=== PATIENT | male | born 1950 | race Caucasian/White ===

== ENCOUNTER 2018-11-03 10:56 | Emergency (ER) | payer MEDICARE ==
[2018-11-03 11:20] VITALS: O2SAT 96
--- NOTE | 2018-11-03 12:05 | RAD ---
EXAM DESCRIPTION: Femur,Right (accession [id number]), Hip,Right 2 Views (accession [id number]) CLINICAL HISTORY: 68 years Male, fell COMPARISON: None. TECHNIQUE: 4 views of the right hip. 3 views of the mid and distal right femur. IMPRESSION: Partially visualized total left hip arthroplasty. Total right hip arthroplasty is present without evidence of hardware complication such as fracture or perivertebral hardware loosening. Surgical hardware appears in satisfactory alignment. No acute displaced fracture. No dislocation. There is no soft tissue swelling or joint effusion. There is mild arthrosis of the pubic joint. There is no acute fracture or aggressive appearing osseous lesion of the right femur. Electronically signed by: Vish Palacios MD 11/03/2018 12:04 PM [facility]
--- NOTE | 2018-11-03 12:05 | RAD ---
EXAM DESCRIPTION: Femur,Right (accession [id number]), Hip,Right 2 Views (accession [id number]) CLINICAL HISTORY: 68 years Male, fell COMPARISON: None. TECHNIQUE: 4 views of the right hip. 3 views of the mid and distal right femur. IMPRESSION: Partially visualized total left hip arthroplasty. Total right hip arthroplasty is present without evidence of hardware complication such as fracture or perivertebral hardware loosening. Surgical hardware appears in satisfactory alignment. No acute displaced fracture. No dislocation. There is no soft tissue swelling or joint effusion. There is mild arthrosis of the pubic joint. There is no acute fracture or aggressive appearing osseous lesion of the right femur. Electronically signed by: Vish Palacios MD 11/03/2018 12:04 PM [facility]
--- NOTE | 2018-11-03 12:15 | ED.PDOC ---
History of Present Illness - General Chief Complaint: Trauma Stated Complaint: RIGHT SIDE PAIN ALL THE WAY DOWN Time Seen by Provider: 11/03/18 11:03 Source: patient Exam Limitations: no limitations - History of Present Illness Initial Comments: the patient is a 68-year-old male presenting to the emergency room after having had a dresser fall over on him at the longterm earlier today. He has some right hip pain that is mainly concerned about is he has had a repair there before. He normally gets around in wheelchair and he is still able to transfer while bearing weight on the right hip. He has numerous other sore places but none that are bothering him as much as this. This occurred this morning. Timing/Duration: momentarily Severity: moderate Improving Factors: immobilization Worsening Factors: movement Associated Symptoms: denies symptoms Review of Systems - Review of Systems Review of Systems: 11/03/18 12:14 numerous correction complaints but review of system is for new complaints Constitutional: States: no symptoms reported EENTM: States: no symptoms reported Respiratory: States: no symptoms reported Cardiology: States: no symptoms reported Gastrointestinal/Abdominal: States: no symptoms reported Genitourinary: States: no symptoms reported Musculoskeletal: States: see HPI Skin: States: no symptoms reported Neurological: States: no symptoms reported Endocrine: States: no symptoms reported All other Systems: No Change from Baseline Past Medical History (General) - Patient Medical History Hx Hypertension: Yes Hx Cancer: No Hx Hepatitis C: No - Vaccination History Hx Tetanus, Diphtheria Vaccination: Yes Hx Influenza Vaccination: Yes Hx Pneumococcal Vaccination: Yes Immunizations Up to Date: Yes - Social History Hx Tobacco Use: No Hx Alcohol Use: No Hx Substance Use: No Hx Substance Use Treatment: No Hx Depression: No - Activities of Daily Living [facility]dc/Assisted Living (if applicable):: [facility] Family Medical History - Family History Mother Family History: Unknown Physical Exam - Physical Exam General Appearance: Alert, Comfortable, No apparent distress Eye Exam: bilateral normal Ears, Nose, Throat: hearing grossly normal, normal pharynx Neck: full range of motion, supple Respiratory: lungs clear, normal breath sounds, no respiratory distress, no accessory muscle use Cardiovascular/Chest: normal peripheral pulses, no edema, other - regular rate Peripheral Pulses: radial,right: 2+, radial,left: 2+ Gastrointestinal/Abdominal: non tender, soft Rectal Exam: other - pelvis is stable Back Exam: no CVA tenderness, no vertebral tenderness Extremity: normal range of motion - he does have some discomfort to palpation over the right hip but no gross deformity. Previous operative site is noted., no calf tenderness, normal capillary refill, other - active and passive range of motion appear to be preserved in the right hip when compared to baseline. 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 X- ray of the pelvis and right hip shows no evidence of any fracture or dislocation. The patient will be sore for the next few weeks but can use his hydrocodone as needed. Needs to ambulate carefully to prevent any further falls. Keep routine follow-up with primary care doctor. ER warnings were given. Departure - Departure Clinical Impression: Fall at longterm Qualifiers: Encounter type: initial encounter Qualified Code(s): W19.XXXA - Unspecified fall, initial encounter; Y92.129 - Unspecified place in longterm as the place of occurrence of the external cause Strain of left hip Qualifiers: Encounter type: initial encounter Qualified Code(s): S76.012A - Strain of muscle, fascia and tendon of left hip, initial encounter Disposition: Discharge to SNF Condition: Fair Departure Forms: ED Discharge - Pt. Copy, Patient Portal Self Enrollment Diet: diabetic diet Activity: increase activity as tolerated Additional Instructions: the patient 68-year-old male presenting to emergency room secondary to right hip pain after having fallen backwards with a dresser on top of him. X- ray of the pelvis and right hip shows no evidence of any fracture or dislocation. The patient will be sore for the next few weeks but can use his hydrocodone as needed. Needs to ambulate carefully to prevent any further falls. Keep routine follow-up with primary care doctor. ER warnings were given.
[2018-11-03 13:18] VITALS: BP 143/86; TEMP 97.5
== END 2018-11-03 13:16 ==
LOC: ER 10:56
DX: S76.012A Strain of muscle, fascia and tendon of left hip, initial encounter (principal); I10 Essential (primary) hypertension; Z96.641 Presence of right artificial hip joint; W20.8XXA Other cause of strike by thrown, projected or falling object, initial encounter; Y92.129 Unspecified place in nursing home as the place of occurrence of the external cause

== ENCOUNTER 2019-04-14 13:37 | Emergency (ER) | payer MEDICARE ==
[2019-04-14] MEDS ORDERED: traMADol HCL 50 MG TAB PO ONE (14:42)
--- NOTE | 2019-04-14 14:47 | ED.PDOC ---
History of Present Illness - General Chief Complaint: Trauma Stated Complaint: s/p fall,right shoulder pain Time Seen by Provider: 04/14/19 14:01 Source: patient, [facility] Exam Limitations: clinical condition - History of Present Illness Initial Comments: PT PRESENTS TO THE ED AFTER FALLING FROM SEATED POSITION WHILE AT INTER[facility]ATE WHERE HE RESIDES. PT REPORTS HITTING HEAD ON A TILE SURFACE BUT DENIES HEADACHE. PTS MAIN COMPLAINT IS RIGHT SHOULDER PAIN, BUT HE ALSO COMPLAINS OF NECK PAIN, MID THORACIC BACK PAIN, AND PAIN IN THE RIGHT CHEST WALL. PT DENIES LOC. PT HAS A HISTORY OF PARKINSONS DISEASE THEREFORE HPI AND ROS IS LIMITED DUE TO PTS CHRONIC CONDITION. Occurred: just prior to arrival Severity: moderate Pain Location: neck, chest, back, upper extremity Method of Injury: fall Improving Factors: immobilization Worsening Factors: movement Loss of Consciousness: no loss of consciousness Associated Symptoms (Fall): chest pain, neck pain Allergies/Adverse Reactions: Allergies Amoxicillin Allergy (Verified 04/14/19 14:18) Codeine Allergy (Verified 04/14/19 14:18) Review of Systems - Review of Systems Constitutional: States: see HPI EENTM: States: see HPI. Denies: throat swelling Respiratory: States: see HPI Cardiology: States: see HPI Gastrointestinal/Abdominal: States: see HPI Genitourinary: States: see HPI Musculoskeletal: States: see HPI Skin: States: see HPI Neurological: States: see HPI Endocrine: States: see HPI Past Medical History (General) - Patient Medical History Hx Cardiac Disorders: Yes - Angina Hx Hypertension: Yes Hx Gastroesophageal Reflux: Yes Hx Cancer: No Hx Hepatitis C: No Hx Other - free text: PARKINSONS - Vaccination History Hx Tetanus, Diphtheria Vaccination: Yes Hx Influenza Vaccination: - UNKNOWN Hx Pneumococcal Vaccination: - UNKNOWN - Social History Hx Tobacco Use: No Hx Alcohol Use: No Hx Substance Use: No Hx Substance Use Treatment: No Hx Depression: No - Activities of Daily Living Long-Term/Assisted Living (if applicable):: [facility] Family Medical History - Family History Mother Family History: Unknown Physical Exam - Physical Exam General Appearance: Lethargic, Well Groomed, Well Hydrated, Well Nourished Head Injury: no evidence of injury Eye Exam: bilateral normal ENT Exam: hearing grossly normal, no evidence of ENT injury Neck Exam: full range of motion, normal alignment, normal inspection, tender midline Cardiovascular/Respiratory: no M/R/G, normal breath sounds, no respiratory distress, other - RIGHT LATERAL CHEST WALL TENDERNESS Gastrointestinal/Abdominal: non tender, soft Back Exam: vertebral tenderness - THORACIC Extremity Exam: no evidence of injury, normal range of motion, tenderness - TO RIGHT SHOULDER Neurologic: depressed affect Skin Exam: normal color, warm/dry - [place] Coma Score Best Eye Response (Narendra): (4) open spontaneously Best Verbal Response ([place]): (5) oriented Best Motor Response ([place]): (6) obeys commands Progress - Progress Progress: 04/14/19 16:17 PT RESTING COMFORTABLY, REPORTS IMPROVEMENT IN PAIN AFTER TRAMADOL. CT FINDINGS DISCUSSED. WILL D/C BACK TO [facility]. Departure - Departure Clinical Impression: Strain of neck muscle, Contusion of rib, Contusion of right shoulder, Contusion of right hip, Fall at [facility] Time of Disposition: 16:18 Disposition: Discharge to Home or Self Care Condition: Good Departure Forms: ED Discharge - Pt. Copy, Patient Portal Self Enrollment Instructions: DI for Trauma Referrals: UNKNOWN,PHYSICIAN [Primary Care Provider] - 1-5 Days
--- NOTE | 2019-04-14 15:49 | CT ---
EXAM DESCRIPTION: Head CT without contrast CLINICAL HISTORY: HEAD INJURY, FALL COMPARISON: Previous CT had June 16, 2018 TECHNIQUE: Noncontrast head CT was performed with routine protocol. FINDINGS: Normal méndez-white matter differentiation. Ventricles and sulci are prominent consistent with age advanced cerebral volume loss. Low density white matter consistent with chronic microvascular ischemic change. No high density hemorrhage, focal edema or shift of the midline. No sulcal effacement. Normal orbital contents. Basilar cisterns appear clear. Intact calvarium with no fracture or lytic lesion. Normal aeration of tympanic cavities and mastoid air cells. No fluid levels in the paranasal sinuses. Skull base appears intact. Symmetrical internal auditory canals. Coronal and sagittal reformatted images confirm the findings. No change compared to the previous study June 16, 2018. IMPRESSION: No acute intracranial pathologic process. This exam was performed according to our departmental dose-optimization program, which includes automated exposure control, adjustment of the mA and/or kV according to patient size and/or use of iterative reconstruction technique. Total DLP equals 864.76 mGycm. Electronically signed by: Deep Cheek MD 04/14/2019 3:46 PM CDT
--- NOTE | 2019-04-14 15:52 | CT ---
EXAM DESCRIPTION: Cervical Spine CLINICAL HISTORY: NECK PAIN, FALL COMPARISON: Previous CT cervical spine January 30, 2016 TECHNIQUE: Cervical CT is performed with thin-section axial imaging. MPRs are created and reviewed as well. FINDINGS: Axial bone window images reveal intact ring of C1. No abnormal widening of the atlantodens interval. No fracture of the vertebral bodies or transverse processes or posterior elements. Lung apices appear clear. No cervical mass or adenopathy. Sagittal reformatted images show normal alignment of vertebral bodies and facets. No jumped facet or facet fracture. Normal craniocervical alignment. No prevertebral soft tissue swelling. No a avulsion of the spinous processes. Spondylosis: Mild facet degenerative changes with mild disc/osteophyte complexes. No acute appearing disc herniation or significant spinal stenosis. Coronal reformatted images show normal atlantooccipital and atlantoaxial alignment. The base of the dens is intact as is the body of C2. Intact lateral masses. IMPRESSION: Negative for fracture or posttraumatic subluxation. This exam was performed according to our departmental dose-optimization program, which includes automated exposure control, adjustment of the mA and/or kV according to patient size and/or use of iterative reconstruction technique. Total DLP equals 430.29 mGycm. Electronically signed by: Deep Cheek MD 04/14/2019 3:50 PM CDT
--- NOTE | 2019-04-14 16:01 | CT ---
EXAM DESCRIPTION: Chest w/o Contrast (accession [id number]), Abdoment/Pelvis w/o Contrast (accession [id number]) CLINICAL HISTORY: 69 years Male, FALL COMPARISON: None. TECHNIQUE: CT images through the chest, abdomen, and pelvis without IV contrast. Multiplanar reformations were provided. This exam was performed according to our departmental dose-optimization program, which includes automated exposure control, adjustment of the mA and/or kV according to patient size and/or use of iterative reconstruction technique. CT CHEST FINDINGS: Heart and mediastinum: Heart is normal size. Esophagus is unremarkable. No mediastinal lymphadenopathy. Evaluation for hilar lymphadenopathy limited without contrast. No sniffing atherosclerosis. Thyroid Gland: Normal appearance of the thyroid gland. Lungs: Clear. Airways: No filling defects or bronchiectasis. Pleura: No effusion or pneumothorax. Musculoskeletal and Soft Tissues: Degenerative changes with no acute fracture or aggressive appearing osseous lesion. Soft tissues are unremarkable with no axillary lymphadenopathy. CT ABDOMEN FINDINGS: There is limited evaluation of the solid organs secondary to the lack of intravenous contrast. Liver: Normal. Gallbladder and biliary: Normal. Pancreas: Normal. Spleen: Normal. Kidneys and adrenal glands: Cortical left renal cyst measures 1.8 cm. No hydronephroureter. Adrenal glands are normal. GI tract: The stomach and small bowel are normal. Peritoneal cavity: No ascites or free air. Retroperitoneum and lymph nodes: Normal. Vascular: Mild atherosclerosis. Musculoskeletal and soft tissues: No acute fracture or aggressive appearing osseous lesion. Bilateral hip arthroplasty which obscures the lower pelvis due to streak hardware artifact. Soft tissues are unremarkable. CT PELVIS FINDINGS: GI tract: Moderate colonic stool throughout the colon. Appendix is normal. Urinary bladder: Moderately distended. Prostate: Obscured by streak hardware artifact from bilateral hip arthroplasty. IMPRESSION: 1. No acute abnormality of the chest, abdomen or pelvis on this noncontrast CT. 2. Moderate plaque stool. 3. Cortical left renal cyst. Electronically signed by: Vish Palacios MD 04/14/2019 3:59 PM CDT
--- NOTE | 2019-04-14 16:07 | CT ---
EXAM DESCRIPTION: Upper Extremity CLINICAL HISTORY: 69 years Male, FALL-RT SHOULDER PAIN COMPARISON: None. TECHNIQUE: Multiple axial images of the right shoulder without contrast. Multiplanar reformations were provided. This exam was performed according to our departmental dose-optimization program, which includes automated exposure control, adjustment of the mA and/or kV according to patient size and/or use of iterative reconstruction technique. FINDINGS: Bones and joint spaces: No acute displaced fracture. No glenohumeral dislocation. Moderate arthrosis of the acromioclavicular joint with 4 mm undersurface spurring. Mild arthrosis of the glenohumeral joint with small inferiorly projecting osteophyte extending off the medial inferior aspect of the humeral head. Subchondral cystic change noted over the greater tuberosity which can be from rotator cuff injury. No significant joint effusion. Muscles and tendons: Muscles and tendons appear intact. Soft tissues: Soft tissues of the right shoulder are unremarkable. IMPRESSION: 1. No acute CT abnormality of the right shoulder. 2. Moderate arthrosis of the acromioclavicular joint with mild undersurface spurring. 3. Mild glenohumeral arthrosis. 4. Subchondral cystic change of the greater tuberosity can be seen with rotator cuff injury. MRI of the right shoulder may be obtained to further characterize and evaluate the rotator cuff as indicated, in addition to the labrum, tendinous, ligamentous. Electronically signed by: Vish Palacios MD 04/14/2019 4:04 PM CDT
[2019-04-14 16:53] VITALS: BP 122/89; TEMP 96.8; O2SAT 96
== END 2019-04-14 16:50 | disposition home or self-care (01) ==
LOC: ER 13:37
DX: S40.011A Contusion of right shoulder, initial encounter (principal); S70.01XA Contusion of right hip, initial encounter; S16.1XXA Strain of muscle, fascia and tendon at neck level, initial encounter; S20.211A Contusion of right front wall of thorax, initial encounter; M54.6 Pain in thoracic spine; I10 Essential (primary) hypertension; K21.9 Gastro-esophageal reflux disease without esophagitis; G20 Parkinson's disease; Z88.1 Allergy status to other antibiotic agents; Z88.5 Allergy status to narcotic agent; W18.30XA Fall on same level, unspecified, initial encounter; Y92.129 Unspecified place in nursing home as the place of occurrence of the external cause

== ENCOUNTER 2020-02-16 07:09 | Emergency (ER) | payer MEDICARE, OTHER ==
[2020-02-16] MEDS ORDERED: TETANUS,DIPHTHERIA,PERTUSSIS 1 EA SYG IM ONE (07:29)
[2020-02-16] MEDS ORDERED: LIDOCAINE 1% 10 ML VIAL INJ ONE (07:59)
[2020-02-16] MEDS ORDERED: CHLORHEXIDINE GLUCONATE 4 % 15 ML UD TOP ONE (07:59)
--- NOTE | 2020-02-16 07:59 | ED.PDOC ---
History of Present Illness - General Chief Complaint: Trauma Stated Complaint: fall Time Seen by Provider: 02/16/20 07:27 Source: patient, RN notes reviewed, Vital Signs reviewed, half-way records Exam Limitations: no limitations - History of Present Illness Initial Comments: Patient is a 70-year-old white male who is in a half-way and fell from bed this morning striking his head on a trash can. There was no loss of consciousness. Patient complains of right ear pain, mild headache and neck pain. The pain is throbbing in nature. Worsened with palpation or movement. Better with rest. It is nonradiating. It is moderate in intensity. Patient's tetanus shot is not up-to-date. Occurred: just prior to arrival, this morning Severity: moderate Pain Location: head, neck, lower extremity Method of Injury: fall Improving Factors: immobilization Worsening Factors: movement Loss of Consciousness: no loss of consciousness Associated Symptoms (Fall): headache, neck pain Allergies/Adverse Reactions: Allergies Amoxicillin Allergy (Verified 04/14/19 14:18) Codeine Allergy (Verified 04/14/19 14:18) Home Medications: Ambulatory Orders Albuterol Sulfate Nebs [Proventil Nebs] 2.5 mg NEB Q6HR PRN 12/09/19 Albuterol Sulfate [Ventolin Hfa] 108 mcg INH Q6HR PRN 12/09/19 Ascorbic Acid [Vitamin C] 1,000 mg PO DAILY 12/09/19 Atorvastatin Calcium [Lipitor] 10 mg PO BEDTIME 12/09/19 Carbidopa-Levodopa [Carbidopa/Levodopa 25-100 mg] 2 tab PO 5XD 12/09/19 Cyanocobalamin [Vitamin B12] 1,000 mcg PO DAILY 12/09/19 Escitalopram Oxalate 15 mg PO BEDTIME 12/09/19 Fluticasone Propionate (Nasal) [Fluticasone Propionate] 50 mcg YAN BID 12/09/19 Gabapentin 600 mg PO TID 12/09/19 Guaifenesin 400 mg PO BID 12/09/19 Hydroxyzine HCl 25 mg PO TID 12/09/19 Levothyroxine Sodium [Synthroid] 100 mcg PO 0600 12/09/19 Lisinopril 20 mg PO DAILY 12/09/19 Meloxicam 15 mg PO DAILY 12/09/19 Menthol (Topical Analgesic) [Arctic Relief Roll-On Brandt] 1 dose TOP BID 12/09/19 Multiple Vitamin 1 tab PO DAILY 12/09/19 Polyethylene Glycol 3350 1 pow PO DAILY 12/09/19 Tramadol HCl 50 mg PO Q6H PRN 12/09/19 Trazodone HCl [Trazodone Hydrochloride] 25 mg PO BEDTIME 12/09/19 Acetaminophen [Tylenol] 650 mg PO PRN 02/16/20 Albuterol Inhaler [Ventolin Hfa Inhaler] 2 inh IN PRN 02/16/20 Ciclopirox 1 % EX PRN 02/16/20 Ibuprofen [Ibu] 800 mg PO PRN 02/16/20 Lidocaine 5% Patch [Lidoderm Patch] 1 ea TOP DAILY 02/16/20 Magnesium Hydroxide [Milk Of Magnesia] 30 ml PO PRN 02/16/20 Polyvinyl Alcohol [Artificial Tears] 1 drop BOTH_EYES PRN 02/16/20 Triamcinolone 0.1% Oint [Kenalog 0.1% Ointment] 1 applic TOP PRN 02/16/20 Review of Systems - Review of Systems Constitutional: States: no symptoms reported, see HPI. Denies: chills, fever, weakness EENTM: States: no symptoms reported. Denies: blurred vision, double vision, nose congestion Respiratory: States: no symptoms reported. Denies: cough, short of breath, wheezing Cardiology: States: no symptoms reported. Denies: chest pain, palpitations, syncope Gastrointestinal/Abdominal: States: no symptoms reported. Denies: abdominal pain, diarrhea, nausea, vomiting Genitourinary: States: no symptoms reported Musculoskeletal: States: see HPI, joint pain - Right ankle and foot, neck pain Skin: States: see HPI, other - Laceration right ear Neurological: States: no symptoms reported Endocrine: States: no symptoms reported Hematologic/Lymphatic: States: no symptoms reported All other Systems: No Change from Baseline Past Medical History (General) - Patient Medical History Hx Seizures: No Hx Stroke: No Hx Asthma: No Hx of COPD: No Hx Cardiac Disorders: Yes - Angina Hx Congestive Heart Failure: No Hx Pacemaker: No Hx Hypertension: Yes Hx Thyroid Disease: Yes Hx Diabetes: Yes Hx Gastroesophageal Reflux: Yes Hx Cancer: No Hx Hepatitis C: No Hx MRSA: No - Vaccination History Hx Tetanus, Diphtheria Vaccination: - unknown Hx Influenza Vaccination: Yes Hx Pneumococcal Vaccination: - unknown - Social History Hx Tobacco Use: Yes Hx Alcohol Use: Yes Hx Substance Use: No Hx Substance Use Treatment: No Hx Depression: Yes Hx Physical Abuse: No Hx Emotional Abuse: No - Activities of Daily Living Senior Care/Assisted Living (if applicable):: [facility] Family Medical History - Family History Mother Family History: Unknown Living Status: Father Living Status: Physical Exam - Physical Exam General Appearance: Alert, Anxious, Obese, Well Developed, Well Hydrated, Well Nourished Head Injury: other - Laceration right ear. Eye Exam: bilateral normal ENT Exam: hearing grossly normal, no evidence of ENT injury, no dental injury Neck Exam: full range of motion, normal alignment, tender lateral Cardiovascular/Respiratory: regular rate, rhythm, no M/R/G, normal peripheral pulses, no JVD, normal breath sounds, no respiratory distress Gastrointestinal/Abdominal: normal bowel sounds, non tender, soft, no organomegaly Back Exam: normal inspection, no CVA tenderness, no vertebral tenderness Extremity Exam: pelvis stable, joint effusion - Right ankle, tenderness - Right ankle and foot Neurologic: landing scaler II-XII nml as tested, no motor/sensory deficits, alert, normal mood/affect, oriented x 3 Skin Exam: normal color, warm/dry Progress - Progress Progress: Differential diagnosis: Ankle fracture, skull fracture, ear laceration, neck fracture among others. 02/16/20 10:34 CT scans and x-rays are unremarkable. No acute fractures. Patient received tetanus prophylaxis. Your laceration was repaired. Patient started on antibiotics. Plan on discharge home to the half-way at this time. I discussed this plan of care with the patient he voices understanding and agreement. Boby Chao M.D. #[id number] - Results/Orders Results/Orders: Study: 6 Views of the Right Foot and Right Ankle. Indication: fall from bed with pain Comparison: None. Impression: The posterior third of the calcaneus appears slightly shortened with patchy sclerosis at this site. This is concerning for age-indeterminate coronally oriented impaction fracture. Further characterization with CT of the ankle and CT of the foot recommended. Ankle mortise alignment normal. Mild spurring infer ior margin medial meniscus and lateral malleolus. Calcaneal spurring at the Achilles tendon insertion and plantar fascia origin. No acute fracture of the forefoot or midfoot identified. Mild soft tissue swelling of the ankle and hindfoot. Electronically signed by: Greg Murrell MD 02/16/2020 8:06 AM CDT Study: CT of the Head. Indication: fall from bed with c/o pain Technique: Axial CT images of the head were acquired without intravenous contrast. This exam was performed according to our departmental dose-optimization program, which includes automated exposure control, adjustment of the mA and/or kV according to patient size and/or use of iterative reconstruction technique. Comparison: None. Findings: No acute ischemia, acute hemorrhage, mass, mass effect, midline shift, or extra-axial fluid collection identified by CT. Ventricles are normal in configuration without hydrocephalus. Patchy hypoattenuation of the periventricular and subcortical white matter noted. This is nonspecific but most consistent with chronic microvascular ischemic change. Global parenchymal volume loss and intracranial atherosclerosis noted as well. Paranasal sinuses are adequately aerated. Mastoid air cells are adequately aerated. Osseous structures and soft tissues are unremarkable. Impression: No acute intracranial abnormality by CT. Senescent changes. Electronically signed by: Greg Murrell MD 02/16/2020 7:59 AM CDT Study: CT cervical spine. Indication: fall from bed with c/o pain. Technique: Axial CT images were acquired through the cervical spine without intravenous contrast. Coronal and sagittal reformats performed. This exam was performed according to our departmental dose-optimization program, which includes automated exposure control, adjustment of the mA and/or kV according to patient size and/or use of iterative reconstruction technique. Comparison: None Findings: Vertebral body height maintained. Straightening cervical spine. No acute fracture or subluxation. Multilevel cervical disc disease noted and most pronounced at C5-C6 where there is mild to moderate disc space height loss and tiny disc osteophyte complexes producing mild spinal canal narrowing and mild bilateral neural foraminal narrowing. Atherosclerosis carotid arteries. Impression: No acute cervical fracture or subluxation identified. Additional findings as above. Electronically signed by: Greg Murrell MD 02/16/2020 8:00 AM CDT EXAM DESCRIPTION: Lower Extremity CLINICAL HISTORY: 70 years Male, right foot and ankle pain COMPARISON: None. TECHNIQUE: CT of the right foot and ankle was performed without intravenous contrast administration. Sagittal and coronal reconstructed reviewed. This exam was performed according to our departmental dose-optimization program, which includes automated exposure control, adjustment of the mA and/or kV according to patient size and/or use of iterative reconstruction technique. FINDINGS: Moderate degenerative changes are identified in the tibiotalar and subtalar joints. Sequelae of old trauma in the posterior aspect of the calcaneus. Plantar and posterior calcaneal spurs are noted. Old avulsion fracture of the lateral malleolus is also noted. No acute fracture or dislocation. CT is limited for evaluation of soft tissue structures, however no acute abnormality is noted. Calcification is identified in the region of the peroneal tendons which could represent sequelae of prior trauma as well. Heterotopic ossification is identified within the tarsal tunnel with possible mass effect on the vasculature and nerves. 1.6 x 1.8 cm cystic lesion is noted medial to the anterior body of the calcaneus probably representing a ganglion cyst. IMPRESSION: 1. Sequelae of old trauma are noted in the calcaneus and lateral malleolar regions. 2. Degenerative changes are identified in the tibiotalar and subtalar joints. 3. Calcification is identified in the region of the peroneal tendons which could represent sequelae of prior trauma as well. Heterotopic ossification is identified within the tarsal tunnel with possible mass effect on the neurovascular bundle. 4. 1.6 x 1.8 cm cystic lesion is noted medial to the anterior body of the calcaneus probably representing a ganglion cyst. Electronically signed by: Princess Gonzalez MD 02/16/2020 9:57 AM Procedures - Laceration/Wound Repair Right Ear Wound's Depth, Shape: irregular, stellate Wound Explored: clean Irrigated w/ Saline (cc's): 100 Betadine Prep?: Yes Anesthesia: 1% Lidocaine Volume Anesthetic (cc's): 10 - Digital block performed on the right ear. Wound Debrided: No wound debridement Wound Repaired With: sutures - Prolene Suture Size/Type: 5:0, prolene Number of Sutures: 7 Layer Closure?: No Sterile Dressing Applied?: Yes Splint Applied?: No Sling Applied?: No Progress: After digital block was performed on the right ear with 10 mL's of lidocaine without epi, good anesthesia was obtained and suture repair was performed. The ear was tacked back in place. There were 7, 5-0 sutures applied. The suture material was Prolene. Patient tolerated the procedure well. Estimated blood loss less than 5 mL's. No complications. Hemostasis was achieved. Wound edges were well approximated. Departure - Departure Clinical Impression: Fall Qualifiers: Encounter type: initial encounter Qualified Code(s): W19.XXXA - Unspecified fall, initial encounter Laceration of ear Qualifiers: Encounter type: initial encounter Laterality: right Qualified Code(s): S01.311A - Laceration without foreign body of right ear, initial encounter Contusion of head Qualifiers: Encounter type: initial encounter Contusion of head detail: ear Laterality: right Qualified Code(s): S00.431A - Contusion of right ear, initial encounter High ankle sprain of right lower extremity Qualifiers: Encounter type: initial encounter Qualified Code(s): S93.431A - Sprain of tibiofibular ligament of right ankle, initial encounter Fall at half-way Qualifiers: Encounter type: initial encounter Qualified Code(s): W19.XXXA - Unspecified fall, initial encounter; Y92.129 - Unspecified place in half-way as the place of occurrence of the external cause Time of Disposition: 10:39 Disposition: Discharge to Rehab Facility Condition: Good Departure Forms: ED Discharge - Pt. Copy, Patient Portal Self Enrollment Instructions: DI for Trauma, Laceration Repair With Stitches (DC), Preventing Falls in the Older Adult, Minor Head Injury (DC), Ankle Sprain (DC) Activity: as per physical therapy Referrals: Rodri Solorio MD [Primary Care Provider] - 1-5 Days Home Medications: Ambulatory Orders Albuterol Sulfate Nebs [Proventil Nebs] 2.5 mg NEB Q6HR PRN 12/09/19 Albuterol Sulfate [Ventolin Hfa] 108 mcg INH Q6HR PRN 12/09/19 Ascorbic Acid [Vitamin C] 1,000 mg PO DAILY 12/09/19 Atorvastatin Calcium [Lipitor] 10 mg PO BEDTIME 12/09/19 Carbidopa-Levodopa [Carbidopa/Levodopa 25-100 mg] 2 tab PO 5XD 12/09/19 Cyanocobalamin [Vitamin B12] 1,000 mcg PO DAILY 12/09/19 Escitalopram Oxalate 15 mg PO BEDTIME 12/09/19 Fluticasone Propionate (Nasal) [Fluticasone Propionate] 50 mcg YAN BID 12/09/19 Gabapentin 600 mg PO TID 12/09/19 Guaifenesin 400 mg PO BID 12/09/19 Hydroxyzine HCl 25 mg PO TID 12/09/19 Levothyroxine Sodium [Synthroid] 100 mcg PO 0600 12/09/19 Lisinopril 20 mg PO DAILY 12/09/19 Meloxicam 15 mg PO DAILY 12/09/19 Menthol (Topical Analgesic) [Arctic Relief Roll-On Brandt] 1 dose TOP BID 12/09/19 Multiple Vitamin 1 tab PO DAILY 12/09/19 Polyethylene Glycol 3350 1 pow PO DAILY 12/09/19 Tramadol HCl 50 mg PO Q6H PRN 12/09/19 Trazodone HCl [Trazodone Hydrochloride] 25 mg PO BEDTIME 12/09/19 Acetaminophen [Tylenol] 650 mg PO PRN 02/16/20 Albuterol Inhaler [Ventolin Hfa Inhaler] 2 inh IN PRN 02/16/20 Ciclopirox 1 % EX PRN 02/16/20 Ibuprofen [Ibu] 800 mg PO PRN 02/16/20 Lidocaine 5% Patch [Lidoderm Patch] 1 ea TOP DAILY 02/16/20 Magnesium Hydroxide [Milk Of Magnesia] 30 ml PO PRN 02/16/20 Polyvinyl Alcohol [Artificial Tears] 1 drop BOTH_EYES PRN 02/16/20 Triamcinolone 0.1% Oint [Kenalog 0.1% Ointment] 1 applic TOP PRN 02/16/20 Additional Instructions: Patient to have sutures removed in 10 days. [facility] may perform this.
--- NOTE | 2020-02-16 08:02 | CT ---
Study: CT cervical spine. Indication: fall from bed with c/o pain. Technique: Axial CT images were acquired through the cervical spine without intravenous contrast. Coronal and sagittal reformats performed. This exam was performed according to our departmental dose-optimization program, which includes automated exposure control, adjustment of the mA and/or kV according to patient size and/or use of iterative reconstruction technique. Comparison: None Findings: Vertebral body height maintained. Straightening cervical spine. No acute fracture or subluxation. Multilevel cervical disc disease noted and most pronounced at C5-C6 where there is mild to moderate disc space height loss and tiny disc osteophyte complexes producing mild spinal canal narrowing and mild bilateral neural foraminal narrowing. Atherosclerosis carotid arteries. Impression: No acute cervical fracture or subluxation identified. Additional findings as above. Electronically signed by: Greg Murrell MD 02/16/2020 8:00 AM CDT
--- NOTE | 2020-02-16 08:07 | RAD ---
Study: 6 Views of the Right Foot and Right Ankle. Indication: fall from bed with pain Comparison: None. Impression: The posterior third of the calcaneus appears slightly shortened with patchy sclerosis at this site. This is concerning for age-indeterminate coronally oriented impaction fracture. Further characterization with CT of the ankle and CT of the foot recommended. Ankle mortise alignment normal. Mild spurring inferior margin medial meniscus and lateral malleolus. Calcaneal spurring at the Achilles tendon insertion and plantar fascia origin. No acute fracture of the forefoot or midfoot identified. Mild soft tissue swelling of the ankle and hindfoot. Electronically signed by: Greg Murrell MD 02/16/2020 8:06 AM CDT
[2020-02-16] MEDS ORDERED: POVIDONE IODINE 10 % 15 ML UD TOP ONE (08:22)
[2020-02-16] MEDS ORDERED: NEOMYCIN-BACITRACIN-POLYMYXIN 0.9 GM UD TOP ONE (08:47)
[2020-02-16] MEDS ORDERED: HYDROcodone 7.5MG/APAP 325MG 1 EA TAB PO ONE (09:30)
[2020-02-16] MEDS ORDERED: CLINDAMYCIN PHOSPHATE 150 MG/ML VIAL IM ONE (09:43)
--- NOTE | 2020-02-16 09:58 | CT ---
EXAM DESCRIPTION: Lower Extremity CLINICAL HISTORY: 70 years Male, right foot and ankle pain COMPARISON: None. TECHNIQUE: CT of the right foot and ankle was performed without intravenous contrast administration. Sagittal and coronal reconstructed reviewed. This exam was performed according to our departmental dose-optimization program, which includes automated exposure control, adjustment of the mA and/or kV according to patient size and/or use of iterative reconstruction technique. FINDINGS: Moderate degenerative changes are identified in the tibiotalar and subtalar joints. Sequelae of old trauma in the posterior aspect of the calcaneus. Plantar and posterior calcaneal spurs are noted. Old avulsion fracture of the lateral malleolus is also noted. No acute fracture or dislocation. CT is limited for evaluation of soft tissue structures, however no acute abnormality is noted. Calcification is identified in the region of the peroneal tendons which could represent sequelae of prior trauma as well. Heterotopic ossification is identified within the tarsal tunnel with possible mass effect on the vasculature and nerves. 1.6 x 1.8 cm cystic lesion is noted medial to the anterior body of the calcaneus probably representing a ganglion cyst. IMPRESSION: 1. Sequelae of old trauma are noted in the calcaneus and lateral malleolar regions. 2. Degenerative changes are identified in the tibiotalar and subtalar joints. 3. Calcification is identified in the region of the peroneal tendons which could represent sequelae of prior trauma as well. Heterotopic ossification is identified within the tarsal tunnel with possible mass effect on the neurovascular bundle. 4. 1.6 x 1.8 cm cystic lesion is noted medial to the anterior body of the calcaneus probably representing a ganglion cyst. Electronically signed by: Princess Gonzalez MD 02/16/2020 9:57 AM CDT
[2020-02-16 09:59] VITALS: O2SAT 95
[2020-02-16 11:26] VITALS: BP 157/90; TEMP 98.1
== END 2020-02-16 11:26 ==
LOC: ER 07:09
DX: S01.311A Laceration without foreign body of right ear, initial encounter (principal); S00.431A Contusion of right ear, initial encounter; S93.431A Sprain of tibiofibular ligament of right ankle, initial encounter; R51 Headache; I10 Essential (primary) hypertension; E11.9 Type 2 diabetes mellitus without complications; Z79.899 Other long term (current) drug therapy; F17.200 Nicotine dependence, unspecified, uncomplicated; W06.XXXA Fall from bed, initial encounter; Y92.129 Unspecified place in nursing home as the place of occurrence of the external cause
CPT/HCPCS: 70450; 72125; 73610; 73630; 73700; 90471; 90715; J3490

== ENCOUNTER 2020-05-18 12:45 | Inpatient (IN) | payer MEDICARE, OTHER ==
[2020-05-18] MEDS ORDERED: SODIUM CHLORIDE 0.9% (FLUSH) 10 ML SYG IV PRN ×2 (12:55→19:55)
[2020-05-18] MEDS ORDERED: SODIUM CHLORIDE 0.9% 1000ML 1,000 ML IVS ONE (12:55)
--- NOTE | 2020-05-18 13:11 | RAD ---
EXAM DESCRIPTION: Chest,1 View CLINICAL HISTORY: 70 years Male, shortness of breath COMPARISON: 12/09/2019 TECHNIQUE: Single view radiograph of the chest. IMPRESSION: Enlarged cardiac silhouette. New opacification in the right upper and left mid-lower lung which may represent pulmonary edema versus atypical or viral infection. Elevation right hemidiaphragm. Question of small left pleural effusion. No pneumothorax although right lung apex not included within the image margins. Thoracic spondylosis. Electronically signed by: Vish Palacios MD 05/18/2020 1:09 PM CDT
--- NOTE | 2020-05-18 13:36 | ED.PDOC ---
History of Present Illness - General Chief Complaint: Neuro Symptoms/Deficits Stated Complaint: SOB Time Seen by Provider: 05/18/20 12:55 Source: patient, RN notes reviewed, Vital Signs reviewed, group home records Exam Limitations: clinical condition - History of Present Illness Initial Comments: 70 y/o male with Parkinson's brought from OR for low 02 sats. He says they pro bably sent him here because he wouldn't answer them and he was sleepy. He denies fever, cough or even feeling SOB. Timing/Duration: 24 hours Severity: moderate Worsening Factors: movement Associated Symptoms: shortness of breath, weakness Allergies/Adverse Reactions: Allergies Amoxicillin Allergy (Verified 04/14/19 14:18) Codeine Allergy (Verified 04/14/19 14:18) Home Medications: Ambulatory Orders Albuterol Sulfate Nebs [Proventil Nebs] 2.5 mg NEB Q6HR PRN 12/09/19 Albuterol Sulfate [Ventolin Hfa] 108 mcg INH Q6HR PRN 12/09/19 Ascorbic Acid [Vitamin C] 1,000 mg PO DAILY 12/09/19 Atorvastatin Calcium [Lipitor] 10 mg PO BEDTIME 12/09/19 Carbidopa-Levodopa [Carbidopa/Levodopa 25-100 mg] 2 tab PO 5XD 12/09/19 Cyanocobalamin [Vitamin B12] 1,000 mcg PO DAILY 12/09/19 Escitalopram Oxalate 15 mg PO BEDTIME 12/09/19 Fluticasone Propionate (Nasal) [Fluticasone Propionate] 50 mcg YAN BID 12/09/19 Gabapentin 600 mg PO TID 12/09/19 Guaifenesin 400 mg PO BID 12/09/19 Hydroxyzine HCl 25 mg PO TID 12/09/19 Levothyroxine Sodium [Synthroid] 100 mcg PO 0600 12/09/19 Lisinopril 20 mg PO DAILY 12/09/19 Meloxicam 15 mg PO DAILY 12/09/19 Menthol (Topical Analgesic) [Arctic Relief Roll-On Brandt] 1 dose TOP BID 12/09/19 Multiple Vitamin 1 tab PO DAILY 12/09/19 Polyethylene Glycol 3350 1 pow PO DAILY 12/09/19 Tramadol HCl 50 mg PO Q6H PRN 12/09/19 Trazodone HCl [Trazodone Hydrochloride] 25 mg PO BEDTIME 12/09/19 Acetaminophen [Tylenol] 650 mg PO PRN 02/16/20 Albuterol Inhaler [Ventolin Hfa Inhaler] 2 inh IN PRN 02/16/20 Ciclopirox 1 % EX PRN 02/16/20 Ibuprofen [Ibu] 800 mg PO PRN 02/16/20 Lidocaine 5% Patch [Lidoderm Patch] 1 ea TOP DAILY 02/16/20 Magnesium Hydroxide [Milk Of Magnesia] 30 ml PO PRN 02/16/20 Polyvinyl Alcohol [Artificial Tears] 1 drop BOTH_EYES PRN 02/16/20 Triamcinolone 0.1% Oint [Kenalog 0.1% Ointment] 1 applic TOP PRN 02/16/20 Review of Systems - Review of Systems Constitutional: States: weakness EENTM: States: no symptoms reported Respiratory: States: short of breath Cardiology: States: no symptoms reported Gastrointestinal/Abdominal: States: no symptoms reported Genitourinary: States: no symptoms reported Musculoskeletal: States: no symptoms reported, muscle stiffness, other - parkinson's Skin: States: dryness, rash Neurological: States: other - parkinson's Endocrine: States: no symptoms reported Past Medical History (General) - Patient Medical History Hx Seizures: No Hx Stroke: No Hx Asthma: No Hx of COPD: No Hx Cardiac Disorders: Yes - Angina Hx Congestive Heart Failure: No Hx Pacemaker: No Hx Hypertension: Yes Hx Thyroid Disease: Yes Hx Diabetes: Yes Hx Gastroesophageal Reflux: Yes Hx Cancer: No Hx Hepatitis C: No Hx MRSA: No - Vaccination History Hx Tetanus, Diphtheria Vaccination: - unknown Hx Influenza Vaccination: Yes Hx Pneumococcal Vaccination: - unknown - Social History Hx Tobacco Use: Yes Hx Alcohol Use: Yes Hx Substance Use: No Hx Substance Use Treatment: No Hx Depression: Yes Hx Physical Abuse: No Hx Emotional Abuse: No Family Medical History - Family History Mother Family History: Unknown Living Status: Father Living Status: Physical Exam - Physical Exam General Appearance: Alert, No apparent distress, Lethargic, Unkempt Eye Exam: bilateral normal Ears, Nose, Throat: normal ENT inspection Neck: normal inspection, limited range of motion, other Respiratory: chest non-tender, lungs clear, no respiratory distress, no accessory muscle use, decreased breath sounds Cardiovascular/Chest: regular rate, rhythm, no edema, no murmur Gastrointestinal/Abdominal: normal bowel sounds, non tender, soft, no organomegaly Extremity: other - increased tone Skin Exam: rash - flaking skin to whole body Progress - Progress Progress: 05/18/20 13:35 EKG: Sinus bradycardia 1st degree AV block, no ST elevation, QTc 449 Departure - Departure Clinical Impression: Pulmonary infiltrate Disposition: Admit Patient Condition: Fair Departure Forms: ED Discharge - Pt. Copy, Patient Portal Self Enrollment Referrals: Rodri Solorio MD [Primary Care Provider] - 1-2 Weeks Home Medications: Ambulatory Orders Albuterol Sulfate Nebs [Proventil Nebs] 2.5 mg NEB Q6HR PRN 12/09/19 Albuterol Sulfate [Ventolin Hfa] 108 mcg INH Q6HR PRN 12/09/19 Ascorbic Acid [Vitamin C] 1,000 mg PO DAILY 12/09/19 Atorvastatin Calcium [Lipitor] 10 mg PO BEDTIME 12/09/19 Carbidopa-Levodopa [Carbidopa/Levodopa 25-100 mg] 2 tab PO 5XD 12/09/19 Cyanocobalamin [Vitamin B12] 1,000 mcg PO DAILY 12/09/19 Escitalopram Oxalate 15 mg PO BEDTIME 12/09/19 Fluticasone Propionate (Nasal) [Fluticasone Propionate] 50 mcg YAN BID 12/09/19 Gabapentin 600 mg PO TID 12/09/19 Guaifenesin 400 mg PO BID 12/09/19 Hydroxyzine HCl 25 mg PO TID 12/09/19 Levothyroxine Sodium [Synthroid] 100 mcg PO 0600 12/09/19 Lisinopril 20 mg PO DAILY 12/09/19 Meloxicam 15 mg PO DAILY 12/09/19 Menthol (Topical Analgesic) [Arctic Relief Roll-On Brandt] 1 dose TOP BID 12/09/19 Multiple Vitamin 1 tab PO DAILY 12/09/19 Polyethylene Glycol 3350 1 pow PO DAILY 12/09/19 Tramadol HCl 50 mg PO Q6H PRN 12/09/19 Trazodone HCl [Trazodone Hydrochloride] 25 mg PO BEDTIME 12/09/19 Acetaminophen [Tylenol] 650 mg PO PRN 02/16/20 Albuterol Inhaler [Ventolin Hfa Inhaler] 2 inh IN PRN 02/16/20 Ciclopirox 1 % EX PRN 02/16/20 Ibuprofen [Ibu] 800 mg PO PRN 02/16/20 Lidocaine 5% Patch [Lidoderm Patch] 1 ea TOP DAILY 02/16/20 Magnesium Hydroxide [Milk Of Magnesia] 30 ml PO PRN 02/16/20 Polyvinyl Alcohol [Artificial Tears] 1 drop BOTH_EYES PRN 02/16/20 Triamcinolone 0.1% Oint [Kenalog 0.1% Ointment] 1 applic TOP PRN 02/16/20
--- NOTE | 2020-05-18 16:04 | HP ---
SUPERVISING PHYSICIAN: Karl Diaz M.D. CHIEF COMPLAINT: Shortness of breath. HISTORY OF PRESENT ILLNESS: Mr. Castillo is a 70 year-old male patient with a significant medical history of Parkinson's, hypertension, gastroesophageal reflux disease, coronary artery disease, hypothyroidism and chronic angina. He resides at [facility] where there are currently numerous positive cases of COVID-19. He was sent to the Emergency Room for evaluation of shortness of breath at the detention. As noted on initial assessment, vital signs showed that he was afebrile but he was satting 88% on room air and is not normally O2 dependent. His chest x-ray showed a new opacification in the right upper and mid lower lung which could represent pulmonary edema versus atypical pneumonia or viral infection. He was tested on respiratory panel and found to be positive for COVID-19, and now is going to be admitted for treatment of COVID-19. The patient was admitted in stable condition. PAST MEDICAL HISTORY: 1. Parkinson's syndrome. 2. Hypertension. 3. Gastroesophageal reflux disease. 4. Coronary artery disease. 5. Hypothyroidism. 6. Chronic angina. PAST SURGICAL HISTORY: 1. Carpal tunnel release. 2. Cancerous lesion removed from face. CURRENT MEDICATIONS: Awaiting an updated list of verification of medications from the electronic medical records from the detention. ALLERGIES: AMOXICILLIN AND CODEINE. FAMILY HISTORY: Noncontributory. SOCIAL HISTORY: The patient lives in [place] at [facility]. He quit smoking in 2014. Has no history of alcohol or illicit drug use. REVIEW OF SYSTEMS: CONSTITUTIONAL: Positive for general malaise and weakness. HEENT: Denies any ear aches, sore throat, nasal congestion, headaches or vision changes. RESPIRATORY: Positive for shortness of breath as noted in History of Present Illness with no noted cough. CARDIOVASCULAR: Denies any chest pains, palpitations or syncopal episodes. GASTROINTESTINAL: Denies any nausea, vomiting, diarrhea, constipation or abdominal pain. GENITOURINARY: Denies any dysuria, hematuria, polyuria. MUSCULOSKELETAL: No reported muscle stiffness. Does have chronic issues as noted in History of Present Illness. SKIN: No reported lesions, rashes, moles or unexplained changes. NEUROLOGIC: Positive for ataxia related to his Parkinson's. No reported seizures. No other focal neuro deficits noted on review of systems. HEMATOLOGIC: Denies any easy bruising or unexplained bleeding or transfusion reactions. PHYSICAL EXAMINATION: VITAL SIGNS: Temperature 97.4, pulse 65, blood pressure 121/85, respirations 20 to 22, satting 98% on room air to 95% on 2 liters nasal cannula. GENERAL: The patient does look unkempt. He is a little lethargic but he is answering questions. He does not appear in any acute distress. HEENT: Tympanic membranes clear bilaterally. Oropharynx is pink with mildly dry mucosal membranes. No lesions. NECK: Supple, nontender with full range of motion. No jugular venous distention noted. CHEST: Lung sounds are fairly clear, just decreased towards the bases. No obvious rhonchi, wheezing or rales. HEART: Regular rate and rhythm without appreciable murmurs, gallops, or rubs. ABDOMEN: Soft, nontender. Positive bowel sounds. EXTREMITIES: There is no noted cyanosis, clubbing or edema. SKIN: Warm, pink and dry. EKG showed sinus bradycardia with first degree AV block with no ST or T wave changes to indicate ischemia or acute injury pattern. LABORATORY: White count 4,100, hemoglobin 12.2, hematocrit 36.6. No left shift noted initially on admission. Coagulation studies showed a PT of 11.5, INR 1.6, PTT of 25.5, fibrinogen and D-dimer were pending. Blood gas was done in the Emergency Room on 2 liters nasal cannula showing a pH of 7.4 with a pO2 of 79, pCO2 of 32, satting 95%. Initial chemistries on admission showed a mildly low sodium at 134, otherwise electrolytes were within normal limits. Creatinine was 1.03. Serum lactic acid was 1.4, calcium 8.7. AST and ALT were all normal. CK was elevated at 523, troponin was less than 0.02. C reactive protein was elevated at 7. Urinalysis was pending. MICROBIOLOGY: Respiratory panel was positive for COVID-19. Blood cultures are pending. RADIOLOGY: Single view chest per radiology interpretation showed a new opacification in the right upper and mid lower lung zones which could represent pulmonary edema versus atypical or viral infection. Please see that report for details. ASSESSMENT: 1. COVID-19 pneumonia. 2. Hypoxia on room air with no history of O2 dependency, likely secondary to #1. 3. History of Parkinson's syndrome. 4. Hypertension. 5. Gastroesophageal reflux disease. 6. Coronary artery disease. 7. Hypothyroidism. 8. Chronic angina. PLAN: Mr. Castillo is going to be admitted for treatment of COVID-19 pneumonia. He was treated with protocol for guidelines with oxygen. Will start him on Decadron 6 mg daily with azithromycin and Rocephin. He will have breathing treatments as needed with a handihaler. Will have bronchial hygiene established. Will repeat his labs as per protocol. Anticipate length of stay to be anywhere from 3 to 7 days. Until we can transition to outpatient management will continue to monitor and treat as needed. #[id number] [facility]
[2020-05-18] MEDS ORDERED: ONDANSETRON INJ 4 MG/2 ML VIAL IV PRN (19:55)
[2020-05-18] MEDS ORDERED: IV SET AND CAP CHANGE INJ INJ SCH (20:00)
[2020-05-18] MEDS ORDERED: AZITHROMYCIN IV 500 MG VIAL IVPB ONE (20:10)
[2020-05-18] MEDS ORDERED: cefTRIAXone SODIUM 1 GM VIAL ONE (20:10)
[2020-05-18] MEDS ORDERED: SODIUM CHLORIDE 0.9% 250ML 250 ML ONE (20:11)
[2020-05-18] MEDS ORDERED: SODIUM CHL 0.9% 50ML MIN-BAG+ 50 ML IVPB ONE (20:11)
[2020-05-18] MEDS: DEXAMETHASONE INJ 10 MG/ML VIAL IV SCH (20:22)
[2020-05-18] MEDS: cefTRIAXone SODIUM 1 GM in SODIUM CHL 0.9% 50ML MIN-BAG+ 50 ML IVPB SCH (20:23)
[2020-05-18] MEDS: ENOXAPARIN SODIUM 40 MG/0.4 ML SYG SUBCU SCH (20:24)
[2020-05-18] MEDS: AZITHROMYCIN IV 500 MG in SODIUM CHLORIDE 0.9% 250ML 250 ML IVPB SCH (20:24)
[2020-05-18] MEDS ORDERED: ALBUTEROL INHALER 64 PUFF/8GM INH PRN (20:30)
[2020-05-18] MEDS ORDERED: DEXTROSE 50% 25 GM/50 ML SYG IV PRN (20:37)
[2020-05-18] MEDS ORDERED: GLUCAGON INJ 1 MG VIAL SUBCU PRN (20:37)
[2020-05-18] MEDS: ACETAMINOPHEN 325 MG TAB PO PRN (21:00)
[2020-05-18] MEDS ORDERED: INSULIN LISPRO 100 UNITS/ML PEN SUBCU SCH (21:00)
[2020-05-19] MEDS: PANTOPRAZOLE SODIUM IV 40 MG VIAL IV SCH (05:53)
[2020-05-19] MEDS: ALBUTEROL INHALER 64 PUFF/8GM INH SCH ×4 (09:30→21:05)
[2020-05-19] MEDS: DEXAMETHASONE INJ 10 MG/ML VIAL IV SCH (09:31)
[2020-05-19] MEDS ORDERED: CYCLOBENZAPRINE HCL 5 MG TAB PO PRN (10:19)
[2020-05-19] MEDS ORDERED: POLYVINYL ALCOHOL 1.4% OPHTH SOL 1 DROP BOTH_EYES PRN (10:19)
[2020-05-19] MEDS ORDERED: LISINOPRIL 10 MG TAB ONE (10:36)
[2020-05-19] MEDS ORDERED: guaiFENesin ER TAB 600 MG TAB ONE (10:36)
[2020-05-19] MEDS: LISINOPRIL 10 MG TAB PO SCH (11:10)
[2020-05-19] MEDS: traMADol HCL 50 MG TAB PO PRN (11:10)
[2020-05-19] MEDS: guaiFENesin ER TAB 600 MG TAB PO SCH ×2 (11:11→21:00)
[2020-05-19] MEDS: CARBIDOPA/LEVODOPA 25/100 1 TAB PO SCH ×4 (11:33→22:23)
[2020-05-19] MEDS: GABAPENTIN 300 MG CAP PO SCH ×2 (14:29→21:00)
[2020-05-19] MEDS: hydrOXYzine HCl 25 MG TAB PO SCH ×2 (14:29→20:57)
--- NOTE | 2020-05-19 15:12 | PN ---
SUPERVISING PHYSICIAN: Karl Diaz M.D. DATE: 05/19/20 SUBJECTIVE: The patient is sitting in bed. He is trying to get up but is unable to due to his Parkinson's disease. He is confused, but per nursing he is clinically improving. OBJECTIVE: VITAL SIGNS: Temperature 97.4, heart rate 83, blood pressure 123/72, respiratory rate 20 to 30 [id number]. O2 saturation is 94% on 2 liters nasal cannula. RESPIRATORY: Diminished breath sounds throughout. He does get tachypneic at times and his respirations are shallow. He can be quite tachypneic. CARDIAC: Regular rate and rhythm. GASTROINTESTINAL: Abdomen is soft, nondistended, non-tender. Bowel sounds are positive. NEUROLOGIC: He is awake and oriented to person only. LABORATORY: WBCs are 4,500 with hemoglobin 12.2, hematocrit 35.4, lymphocytes are 0.6 and 12.3%. Fibrinogen has worsened to 550. D-dimer is pending. Sodium 132. LDH has increased to 281. C reactive protein has worsened to 8.6. Preliminary blood cultures show no growth after 24 hours. All other labs and films have been reviewed via the EMR. ASSESSMENT: 1. COVID-19 pneumonia. 2. Hypoxia on room air with no history of O2 dependency, likely secondary to #1. 3. History of Parkinson's syndrome. 4. Hypertension. 5. Gastroesophageal reflux disease. 6. Coronary artery disease. 7. Hypothyroidism. 8. Chronic angina. PLAN: We will continue present supportive care. Will continue to monitor his cultures as well as his labs. Will continue on his antibiotics and COVID protocol. I will repeat his labs and chest x-ray in the morning. His home medications have been restarted. Will continue to monitor closely and follow as needed. #[id number] [facility]
[2020-05-19] MEDS: cefTRIAXone SODIUM 1 GM in SODIUM CHL 0.9% 50ML MIN-BAG+ 50 ML IVPB SCH (19:43)
[2020-05-19] MEDS: AZITHROMYCIN IV 500 MG in SODIUM CHLORIDE 0.9% 250ML 250 ML IVPB SCH (19:44)
[2020-05-19] MEDS: traZODone HCL 50 MG TAB PO SCH (20:57)
[2020-05-19] MEDS: FLUTICASONE PROP 0.05% NASAL 16 GM BTTL BNAS SCH (20:58)
[2020-05-19] MEDS: ESCITALOPRAM 10 MG TAB PO SCH (20:58)
[2020-05-19] MEDS: ENOXAPARIN SODIUM 40 MG/0.4 ML SYG SUBCU SCH (20:59)
[2020-05-19] MEDS: ATORVASTATIN 10 MG TAB PO SCH (20:59)
[2020-05-20] MEDS: CARBIDOPA/LEVODOPA 25/100 1 TAB PO SCH ×5 (06:15→22:39)
[2020-05-20] MEDS: LEVOTHYROXINE SODIUM 0.1 MG TAB PO SCH (06:15)
[2020-05-20] MEDS: PANTOPRAZOLE SODIUM IV 40 MG VIAL IV SCH (06:15)
[2020-05-20] MEDS: ALBUTEROL INHALER 64 PUFF/8GM INH SCH ×4 (08:30→20:30)
[2020-05-20] MEDS: DEXAMETHASONE INJ 10 MG/ML VIAL IV SCH (09:10)
[2020-05-20] MEDS: ACETAMINOPHEN 325 MG TAB PO PRN (09:11)
[2020-05-20] MEDS: guaiFENesin ER TAB 600 MG TAB PO SCH ×2 (09:12→20:31)
[2020-05-20] MEDS: GABAPENTIN 300 MG CAP PO SCH ×3 (09:12→20:31)
[2020-05-20] MEDS: hydrOXYzine HCl 25 MG TAB PO SCH ×3 (09:12→20:30)
[2020-05-20] MEDS: LISINOPRIL 10 MG TAB PO SCH (09:13)
[2020-05-20] MEDS: LIDOCAINE 4% TOP SCH (09:19)
[2020-05-20] MEDS: FLUTICASONE PROP 0.05% NASAL 16 GM BTTL BNAS SCH ×2 (09:20→20:30)
--- NOTE | 2020-05-20 11:42 | RAD ---
EXAM DESCRIPTION: Chest,1 View CLINICAL HISTORY: covid COMPARISON: Chest radiograph dated May 18, 2020 TECHNIQUE: 1 view radiograph of the chest FINDINGS: Cardiac silhouette shows upper limits of normal heart size. Pulmonary vascularity is within normal limits. Mild interval improvement of hazy opacity in the right upper lobe and left mid lung compared to May 18, 2020. Better visualization of the left hemidiaphragm compared to May 18, 2020, suspect improved pleural small left pleural effusion. There is no pneumothorax. No acute osseous abnormality. IMPRESSION: 1. Mild interval improvement of hazy opacity in the right upper lobe and left mid lung compared to May 18, 2020. Findings compatible with improving pneumonia. 2. Suspect small left pleural effusion, improved compared to May 18, 2020. Electronically signed by: Ankit Driver MD 05/20/2020 11:41 AM CDT
[2020-05-20] MEDS: POLYETHYLENE GLYCOL 3350 17 GM PCKT PO SCH (14:36)
[2020-05-20] MEDS: cefTRIAXone SODIUM 1 GM in SODIUM CHL 0.9% 50ML MIN-BAG+ 50 ML IVPB SCH (19:28)
[2020-05-20] MEDS: AZITHROMYCIN IV 500 MG in SODIUM CHLORIDE 0.9% 250ML 250 ML IVPB SCH (19:29)
[2020-05-20] MEDS: traZODone HCL 50 MG TAB PO SCH (20:30)
[2020-05-20] MEDS: ENOXAPARIN SODIUM 40 MG/0.4 ML SYG SUBCU SCH (20:30)
[2020-05-20] MEDS: ATORVASTATIN 10 MG TAB PO SCH (20:30)
[2020-05-20] MEDS: ESCITALOPRAM 10 MG TAB PO SCH (20:30)
[2020-05-21] MEDS: traMADol HCL 50 MG TAB PO PRN (02:52)
[2020-05-21] MEDS: PANTOPRAZOLE SODIUM IV 40 MG VIAL IV SCH (05:33)
[2020-05-21] MEDS: LEVOTHYROXINE SODIUM 0.1 MG TAB PO SCH (05:33)
[2020-05-21] MEDS: CARBIDOPA/LEVODOPA 25/100 1 TAB PO SCH ×2 (05:33→09:54)
--- NOTE | 2020-05-21 08:58 | PN ---
SUPERVISING PHYSICIAN: Karl Diaz M.D. DATE: 05/20/20 SUBJECTIVE: The patient is sitting in bed. He has no complaints. There have been no issues reported per nursing. OBJECTIVE: VITAL SIGNS: Temperature 98.8, heart rate 77, blood pressure 135/71, respiratory rate 21 to 24, O2 saturation is 93% on 2 liters nasal cannula. RESPIRATORY: Diminished at the bases with a few scattered rhonchi.. CARDIAC: Regular rate and rhythm. GASTROINTESTINAL: Abdomen is soft, nondistended, non-tender.. NEUROLOGIC: He is awake and oriented to person only. LABORATORY: WBCs are 9.3 with hemoglobin 11.5, hematocrit 34. Fibrinogen is 508. D-dimer is normal at 244. Electrolytes are within normal limits with LDH of 243. Troponin 0.02. C-reactive protein 4.5. Intelligence blood cultures show no growth, Chest x-ray: 1. Mild interval improvement of hazy opacity in her right upper lobe and left midlung compared to 05/18/20. Findings compatible with improving pneumonia. 2. Suspect small left pleural effusion, improved compared to 05/18/20. All other labs and films have been reviewed via the EMR. ASSESSMENT: 1. COVID-19 pneumonia. 2. Hypoxia on room air with no history of O2 dependency, likely secondary to #1. 3. History of Parkinson's syndrome. 4. Hypertension. 5. Gastroesophageal reflux disease. 6. Coronary artery disease. 7. Hypothyroidism. 8. Chronic angina. PLAN: We will continue present supportive care including his antibiotics, steroids and his aggressive pulmonary hygiene. I have ordered lab for the in morning. Will hold for chest x-ray until Saturday. Will continue to monitor closely and follow as needed. #[id number] [facility]
[2020-05-21] MEDS: ALBUTEROL INHALER 64 PUFF/8GM INH SCH ×2 (09:40→14:22)
[2020-05-21] MEDS: guaiFENesin ER TAB 600 MG TAB PO SCH (09:47)
[2020-05-21] MEDS: POLYETHYLENE GLYCOL 3350 17 GM PCKT PO SCH (09:48)
[2020-05-21] MEDS: LISINOPRIL 10 MG TAB PO SCH (09:48)
[2020-05-21] MEDS: hydrOXYzine HCl 25 MG TAB PO SCH (09:48)
[2020-05-21] MEDS: DEXAMETHASONE INJ 10 MG/ML VIAL IV SCH (09:48)
[2020-05-21] MEDS: GABAPENTIN 300 MG CAP PO SCH (09:48)
[2020-05-21] MEDS: LIDOCAINE 4% TOP SCH (09:49)
[2020-05-21] MEDS: FLUTICASONE PROP 0.05% NASAL 16 GM BTTL BNAS SCH (09:49)
[2020-05-21 12:09] VITALS: BP 147/78; TEMP 98.1; O2SAT 94
--- NOTE | 2020-05-21 16:27 | DS ---
SUPERVISING PHYSICIAN: Karl Diaz M.D. DISCHARGE DIAGNOSIS: 1. COVID-19 pneumonia. 2. Hypoxia on room air with no history of O2 dependency, likely secondary to #1. 3. History of Parkinson's syndrome. 4. Hypertension. 5. Gastroesophageal reflux disease. 6. Coronary artery disease. 7. Hypothyroidism. 8. Chronic angina. HISTORY OF PRESENT ILLNESS: This is a 70 year-old male patient who lives at [facility]. He has a significant medical history of Parkinson's, hypertension, gastroesophageal reflux disease and coronary artery disease. He tested positive for COVID-19 and was short of breath at the facility. He was sent to the Emergency Room. He was afebrile but was satting 88% on room air. He is not normally O2 dependent. A chest x-ray showed a new opacification in the right upper and mid lower lung that could represent pulmonary edema versus atypical pneumonia or viral infection. He was found to be positive for COVID- 19, and was admitted to the hospital for treatment of COVID pneumonia. HOSPITAL COURSE: The patient was admitted and started on the COVID pneumonia protocol. He was given azithromycin and Rocephin. He was also put on IV Decadron as well as breathing treatments both p.r.n. and as needed. He was given aggressive pulmonary hygiene. His labs were monitored closely. He actually slowly but steadily progressively improved clinically. He was weaned off of his oxygen and his home medications were restarted. His labs have trended to normal and have mostly normalized. His chest x-ray has improved. Vital signs have stabilized and he is on room air. He will be discharged back to [facility] to their COVID unit. LABORATORY: WBCs started at 4,100 and today are 7,600. His H&H is stable at 11.4 and 33.5. He did have a left shift on his differential several days prior to discharge, but it is normalized now. Fibrinogen went as high as 550 and is now trending down to 475. D-dimer is normal at 244. ABG showed pO2 of 79 with pCO2 of 32. He did have some mild hyponatremia with a sodium of 134, potassium is stable at 3.8, chloride at 104, carbon dioxide at 20 to 22, creatinine was normal at 0.72, calcium 8.6, magnesium 2.2. LDH was 281 and is now 233. Troponin was normal at less than 0.02. C reactive protein at 8.6 that is down to 5.8. Preliminary blood cultures show no growth after 3 days, although he did have 1 positive anaerobic culture that showed gram positive cocci. The culture and sensitivity is still pending at this time. Final chest x-ray showed: 1. Mild improvement of hazy opacity in the right upper lobe and left mid lung compared to 05/18/20. Findings compatible with improving pneumonia. 2. Suspect small left pleural effusion. DISCHARGE PLAN: The patient will be discharged back to [facility] in stable condition. He is to resume his previous diet and increase his activity as tolerated. He is to followup with Dr. Solorio in the next 1 to 2 weeks. It is recommended that he have another chest x-ray, CRP, CMP, CBC, LDH and fibrinogen in approximately 5 to 7 days. It is also recommended that we followup with that positive blood culture with the final [employer] report. In addition to his routine medications, he has also been sent home on Align, Decadron, Eliquis, Guaifenesin, Cefdinir, Albuterol and azithromycin. He is to return to the hospital or followup with Dr. Solorio for any problems or complications. DISCHARGE MEDICATIONS: 1. Levothyroxine. 2. Trazodone. 3. Tramadol. 4. Multivitamin. 5. Meloxicam. 6. Lisinopril. 7. Albuterol p.r.n. 8. MiraLAX. 9. Guaifenesin. 10. Gabapentin. 11. Fluticasone nasal. 12. Citalopram. 13. Cyanocobalamin. 14. Carbidopa Levodopa. 15. Atorvastatin. 16. Vitamin C. 17. Albuterol scheduled q.i.d. 18. Hydroxyzine. 19. Triamcinolone topical. 20. Acetaminophen. 21. Milk of Magnesia. 22. Ibuprofen. 23. Ciclopirox 1%. 24. Artificial Tears. 25. Align b.i.d. 26. Dexamethasone 4 mg daily for 7 days. 27. Eliquis 2.5 mg b.i.d. for 30 days. 28. Cefdinir 300 mg b.i.d. for 11 days. 29. Azithromycin 250 mg daily for 4 days. 30. Guaifenesin 600 mg b.i.d. for 30 days. 31. Albuterol inhaler 2 puffs 4 times daily. [facility][id number] [facility]
[2020-05-21] MEDS ORDERED: BIFIDOBACTERIUM INFANTIS 4 MG CAP PO SCH (21:00)
[2020-05-21] MEDS ORDERED: guaiFENesin ER TAB 600 MG TAB PO SCH (21:00)
== END 2020-05-21 13:20 | DRG 177 ==
LOC: ER 12:45 → OBSVTOIN 16:03 → MS 16:03
PROVIDERS: ADMIT Nurse Practitioner Family; ATTEND Nurse Practitioner Acute Care
DX: U07.1 COVID-19 (principal); J12.89 Other viral pneumonia; R09.02 Hypoxemia; G20 Parkinson's disease; I10 Essential (primary) hypertension; K21.9 Gastro-esophageal reflux disease without esophagitis; I25.119 Atherosclerotic heart disease of native coronary artery with unspecified angina pectoris; E03.9 Hypothyroidism, unspecified; Z88.0 Allergy status to penicillin; Z88.5 Allergy status to narcotic agent; Z87.891 Personal history of nicotine dependence; Z79.1 Long term (current) use of non-steroidal anti-inflammatories (NSAID); Z79.891 Long term (current) use of opiate analgesic; Z79.899 Other long term (current) drug therapy

== ENCOUNTER 2020-09-25 03:34 | Emergency (ER) | payer MEDICARE, OTHER ==
[2020-09-25 04:06] VITALS: O2SAT 95
--- NOTE | 2020-09-25 04:06 | ED.PDOC ---
History of Present Illness - General Chief Complaint: Respiratory Problem Stated Complaint: difficulty breathing Time Seen by Provider: 09/25/20 04:01 - History of Present Illness Comments: PATIENT SENT FROM [place] BECAUSE HE C/O SOB, PATIENT W/ COVID 3 MONTHS AGO, NEGATIVE COVID TEST THIS WEEK. PT DENIES SOB IN THE ED ALTHOUGH HE IS MINIMALLY VERBAL AND IT IS DIFFICULT TO KNOW FOR SURE WHAT HIS INTENT IS. HE HAS ADVANCED DEMENTIA, [facility]. BEST CAN BE DETERMINED PATIENTS BEHAVIOUR IS AT HIS USUAL STATE ACCORDING TO REPORTS FROM EMS AND NURSING STAFF THAT KNOW HIM. ACCORDING TO [place] RECORDS HE HAS A HX OF PARKINSON'S DZ, SO AT LEAST TO SOME DEGREE, IT APPEARS HIS DEMENTIA IS LIKELY DUE TO PARKINSON'S DZ. Allergies/Adverse Reactions: Allergies Amoxicillin Allergy (Verified 04/14/19 14:18) Codeine Allergy (Verified 04/14/19 14:18) Home Medications: Ambulatory Orders Albuterol Sulfate Nebs [Proventil Nebs] 2.5 mg NEB Q6HR PRN 12/09/19 Albuterol Sulfate [Ventolin Hfa] 108 mcg INH Q6HR PRN 12/09/19 Ascorbic Acid [Vitamin C] 1,000 mg PO DAILY 12/09/19 Atorvastatin Calcium [Lipitor] 10 mg PO BEDTIME 12/09/19 Carbidopa-Levodopa [Carbidopa/Levodopa 25-100 mg] 2 tab PO 5XD 12/09/19 Cyanocobalamin [Vitamin B12] 1,000 mcg PO DAILY 12/09/19 Escitalopram Oxalate 15 mg PO BEDTIME 12/09/19 Fluticasone Propionate (Nasal) [Fluticasone Propionate] 50 mcg BNAS BID 12/09/19 Gabapentin 600 mg PO TID 12/09/19 Guaifenesin 400 mg PO BID 12/09/19 Hydroxyzine HCl [Hydroxyzine Hydrochloride] 25 mg PO TID 12/09/19 Levothyroxine Sodium [Synthroid] 100 mcg PO 0600 12/09/19 Lisinopril 20 mg PO DAILY 12/09/19 Meloxicam 15 mg PO DAILY 12/09/19 Multiple Vitamin 1 tab PO DAILY 12/09/19 Polyethylene Glycol 3350 1 pow PO DAILY 12/09/19 Tramadol HCl 50 mg PO Q6H PRN 12/09/19 Trazodone HCl [Trazodone Hydrochloride] 25 mg PO BEDTIME 12/09/19 Acetaminophen [Tylenol] 650 mg PO Q6H PRN 02/16/20 Albuterol Inhaler [Ventolin Hfa Inhaler] 2 inh IN PRN 02/16/20 Ciclopirox 1 % EX PRN PRN 02/16/20 Ibuprofen [Ibu] 800 mg PO Q8H PRN 02/16/20 Magnesium Hydroxide [Milk Of Magnesia] 30 ml PO Q12H PRN 02/16/20 Polyvinyl Alcohol [Artificial Tears] 1 drop BOTH_EYES Q6H PRN 02/16/20 Triamcinolone 0.1% Oint [Kenalog 0.1% Ointment] 1 applic TOP PRN 02/16/20 Cyclobenzaprine HCl [Cyclobenzaprine Hydrochlo] 5 mg PO Q8H PRN 05/18/20 Lidocaine 4% Patch 1 ea TOP DAILY 05/18/20 Albuterol Inhaler [Ventolin Hfa Inhaler] 2 puff INH QID #1 inh 05/21/20 Apixaban [Eliquis] 2.5 mg PO BID 30 Days tab 05/21/20 Azithromycin Tab [Zithromax Tab] 250 mg PO QD #4 tab 05/21/20 Bifidobacterium Infantis [Align] 4 mg PO BID #30 capsule 05/21/20 Cefdinir [Omnicef] 300 mg PO BID #22 cap 05/21/20 Dexamethasone Tab [Decadron Tab] 4 mg PO DAILY #7 tab 05/21/20 Guaifenesin [Mucinex] 600 mg PO BID #60 tab 05/21/20 Review of Systems - Review of Systems Unable to Obtain Due To: dementia Past Medical History (General) - Patient Medical History Hx Seizures: No Hx Stroke: No Hx Asthma: No Hx of COPD: No Hx Cardiac Disorders: Yes - Angina Hx Congestive Heart Failure: No Hx Pacemaker: No Hx Hypertension: Yes Hx Thyroid Disease: Yes Hx Diabetes: No Hx Gastroesophageal Reflux: Yes Hx Cancer: No Hx Hepatitis C: No Hx MRSA: No - Vaccination History Hx Tetanus, Diphtheria Vaccination: - unknown Hx Influenza Vaccination: Yes Hx Pneumococcal Vaccination: - unknown - Social History Hx Tobacco Use: Yes Hx Alcohol Use: No Hx Substance Use: No Hx Substance Use Treatment: No Hx Depression: Yes Hx Physical Abuse: No Hx Emotional Abuse: No Family Medical History - Family History Mother Family History: Unknown Living Status: Father Living Status: Physical Exam - Physical Exam General Appearance: No apparent distress ENT Exam: normal ENT inspection Neck: non-tender, full range of motion, supple Respiratory: chest non-tender, lungs clear, normal breath sounds, no respiratory distress Cardiovascular/Chest: normal peripheral pulses, regular rate, rhythm, no edema, no gallop, no JVD Gastrointestinal/Abdominal: normal bowel sounds, non tender, soft, no organomegaly Extremity: normal range of motion, non-tender, normal inspection Skin Exam: normal color, warm/dry, cyanosis Lymphatic: no adenopathy Progress - EKG/XRAY/CT Comments: NO STEMI, NSR, NON-SPECIFIC CHANGES XRAY: chest - NO ACUTE INFILTRATES, NORMAL Departure - Departure Clinical Impression: Dementia Qualifiers: Dementia type: Parkinson's disease Dementia behavioral disturbance: without behavioral disturbance Qualified Code(s): G20 - Parkinson's disease; F02.80 - Dementia in other diseases classified elsewhere without behavioral disturbance Disposition: Discharge to Home for HH Condition: Fair Departure Forms: ED Discharge - Pt. Copy, Patient Portal Self Enrollment Referrals: TON YOUNG [Primary Care Provider] - 1-2 Weeks Home Medications: Ambulatory Orders Albuterol Sulfate Nebs [Proventil Nebs] 2.5 mg NEB Q6HR PRN 12/09/19 Albuterol Sulfate [Ventolin Hfa] 108 mcg INH Q6HR PRN 12/09/19 Ascorbic Acid [Vitamin C] 1,000 mg PO DAILY 12/09/19 Atorvastatin Calcium [Lipitor] 10 mg PO BEDTIME 12/09/19 Carbidopa-Levodopa [Carbidopa/Levodopa 25-100 mg] 2 tab PO 5XD 12/09/19 Cyanocobalamin [Vitamin B12] 1,000 mcg PO DAILY 12/09/19 Escitalopram Oxalate 15 mg PO BEDTIME 12/09/19 Fluticasone Propionate (Nasal) [Fluticasone Propionate] 50 mcg BNAS BID 12/09/19 Gabapentin 600 mg PO TID 12/09/19 Guaifenesin 400 mg PO BID 12/09/19 Hydroxyzine HCl [Hydroxyzine Hydrochloride] 25 mg PO TID 12/09/19 Levothyroxine Sodium [Synthroid] 100 mcg PO 0600 12/09/19 Lisinopril 20 mg PO DAILY 12/09/19 Meloxicam 15 mg PO DAILY 12/09/19 Multiple Vitamin 1 tab PO DAILY 12/09/19 Polyethylene Glycol 3350 1 pow PO DAILY 12/09/19 Tramadol HCl 50 mg PO Q6H PRN 12/09/19 Trazodone HCl [Trazodone Hydrochloride] 25 mg PO BEDTIME 12/09/19 Acetaminophen [Tylenol] 650 mg PO Q6H PRN 02/16/20 Albuterol Inhaler [Ventolin Hfa Inhaler] 2 inh IN PRN 02/16/20 Ciclopirox 1 % EX PRN PRN 02/16/20 Ibuprofen [Ibu] 800 mg PO Q8H PRN 02/16/20 Magnesium Hydroxide [Milk Of Magnesia] 30 ml PO Q12H PRN 02/16/20 Polyvinyl Alcohol [Artificial Tears] 1 drop BOTH_EYES Q6H PRN 02/16/20 Triamcinolone 0.1% Oint [Kenalog 0.1% Ointment] 1 applic TOP PRN 02/16/20 Cyclobenzaprine HCl [Cyclobenzaprine Hydrochlo] 5 mg PO Q8H PRN 05/18/20 Lidocaine 4% Patch 1 ea TOP DAILY 05/18/20 Albuterol Inhaler [Ventolin Hfa Inhaler] 2 puff INH QID #1 inh 05/21/20 Apixaban [Eliquis] 2.5 mg PO BID 30 Days tab 05/21/20 Azithromycin Tab [Zithromax Tab] 250 mg PO QD #4 tab 05/21/20 Bifidobacterium Infantis [Align] 4 mg PO BID #30 capsule 05/21/20 Cefdinir [Omnicef] 300 mg PO BID #22 cap 05/21/20 Dexamethasone Tab [Decadron Tab] 4 mg PO DAILY #7 tab 05/21/20 Guaifenesin [Mucinex] 600 mg PO BID #60 tab 05/21/20
[2020-09-25] MEDS ORDERED: SODIUM CHLORIDE 0.9% 1000ML 1,000 ML IVS ONE (04:19)
--- NOTE | 2020-09-25 04:38 | RAD ---
CHEST, ONE VIEW XR CLINICAL HISTORY: SOB COMPARISON: 04/20/2020 TECHNIQUE: AP Chest. FINDINGS: Cardiac size is upper normal. Normal cardiomediastinal contours. Normal pulmonary vascularity. Clear lungs and pleural spaces. Unremarkable soft tissues and bony structures. IMPRESSION: 1. No acute chest disease. Electronically signed by: Rosalina Jeong DO 09/25/2020 4:36 AM DIRECTOR FOOD AND [employer]AGE
[2020-09-25 05:46] VITALS: BP 125/52; TEMP 98.1
== END 2020-09-25 05:48 | disposition home health service (06) ==
LOC: ER 03:34
DX: G20 Parkinson's disease (principal); F02.80 Dementia in other diseases classified elsewhere, unspecified severity, without behavioral disturbance, psychotic disturbance, mood disturbance, and anxiety; I10 Essential (primary) hypertension; E07.9 Disorder of thyroid, unspecified; K21.9 Gastro-esophageal reflux disease without esophagitis; F32.9 Major depressive disorder, single episode, unspecified; Z86.19 Personal history of other infectious and parasitic diseases; Z87.891 Personal history of nicotine dependence; Z79.899 Other long term (current) drug therapy; Z79.01 Long term (current) use of anticoagulants; Z88.1 Allergy status to other antibiotic agents; Z88.5 Allergy status to narcotic agent
CPT/HCPCS: 71045; 80053; 83605; 84484; 85025; 87040; 93005; J7030

== ENCOUNTER 2020-10-07 15:38 | Emergency (ER) | payer MEDICARE, OTHER ==
[2020-10-07 16:03] VITALS: TEMP 97.8
[2020-10-07] MEDS ORDERED: SODIUM CHLORIDE 0.9% (FLUSH) 10 ML SYG IV PRN (16:33)
--- NOTE | 2020-10-07 16:37 | ED.PDOC ---
History of Present Illness - General Chief Complaint: Neuro Symptoms/Deficits Stated Complaint: AMS, difficulty exhaling Time Seen by Provider: 10/07/20 16:33 Source: patient, RN notes reviewed, Vital Signs reviewed, EMS notes reviewed Exam Limitations: clinical condition - History of Present Illness Initial Comments: History of present illness and review of systems is limited secondary to patient confusion and altered mental status. Per EMS, patient was sent by assisted secondary to altered mental status x6 hours. Patient had just finished treatment for UTI yesterday. He had been on antibiotics, oral. On arrival here patient is confused, GCS of 9. Baptiste catheter is in place and it has a discolored brown slurry in the catheter. Timing/Duration: 4-6 hours Severity: severe Improving Factors: nothing Worsening Factors: nothing Associated Symptoms: denies symptoms Allergies/Adverse Reactions: Allergies Amoxicillin Allergy (Verified 10/07/20 16:03) Codeine Allergy (Verified 10/07/20 16:03) Home Medications: Ambulatory Orders Albuterol Sulfate Nebs [Proventil Nebs] 2.5 mg NEB Q6HR PRN 12/09/19 Albuterol Sulfate [Ventolin Hfa] 108 mcg INH Q6HR PRN 12/09/19 Ascorbic Acid [Vitamin C] 1,000 mg PO DAILY 12/09/19 Atorvastatin Calcium [Lipitor] 10 mg PO BEDTIME 12/09/19 Carbidopa-Levodopa [Carbidopa/Levodopa 25-100 mg] 2 tab PO 5XD 12/09/19 Cyanocobalamin [Vitamin B12] 1,000 mcg PO DAILY 12/09/19 Escitalopram Oxalate 15 mg PO BEDTIME 12/09/19 Fluticasone Propionate (Nasal) [Fluticasone Propionate] 50 mcg BNAS BID 12/09/19 Gabapentin 600 mg PO TID 12/09/19 Guaifenesin 400 mg PO BID 12/09/19 Hydroxyzine HCl [Hydroxyzine Hydrochloride] 25 mg PO TID 12/09/19 Levothyroxine Sodium [Synthroid] 100 mcg PO 0600 12/09/19 Lisinopril 20 mg PO DAILY 12/09/19 Meloxicam 15 mg PO DAILY 12/09/19 Multiple Vitamin 1 tab PO DAILY 12/09/19 Polyethylene Glycol 3350 1 pow PO DAILY 12/09/19 Tramadol HCl 50 mg PO Q6H PRN 12/09/19 Trazodone HCl [Trazodone Hydrochloride] 25 mg PO BEDTIME 12/09/19 Acetaminophen [Tylenol] 650 mg PO Q6H PRN 02/16/20 Albuterol Inhaler [Ventolin Hfa Inhaler] 2 inh IN PRN 02/16/20 Ciclopirox 1 % EX PRN PRN 02/16/20 Ibuprofen [Ibu] 800 mg PO Q8H PRN 02/16/20 Magnesium Hydroxide [Milk Of Magnesia] 30 ml PO Q12H PRN 02/16/20 Polyvinyl Alcohol [Artificial Tears] 1 drop BOTH_EYES Q6H PRN 02/16/20 Triamcinolone 0.1% Oint [Kenalog 0.1% Ointment] 1 applic TOP PRN 02/16/20 Cyclobenzaprine HCl [Cyclobenzaprine Hydrochlo] 5 mg PO Q8H PRN 05/18/20 Lidocaine 4% Patch 1 ea TOP DAILY 05/18/20 Albuterol Inhaler [Ventolin Hfa Inhaler] 2 puff INH QID #1 inh 05/21/20 Apixaban [Eliquis] 2.5 mg PO BID 30 Days tab 05/21/20 Azithromycin Tab [Zithromax Tab] 250 mg PO QD #4 tab 05/21/20 Bifidobacterium Infantis [Align] 4 mg PO BID #30 capsule 05/21/20 Cefdinir [Omnicef] 300 mg PO BID #22 cap 05/21/20 Dexamethasone Tab [Decadron Tab] 4 mg PO DAILY #7 tab 05/21/20 Guaifenesin [Mucinex] 600 mg PO BID #60 tab 05/21/20 Review of Systems - Review of Systems Constitutional: States: see HPI Unable to Obtain Due To: condition, clinical condition Past Medical History (General) - Patient Medical History Hx Seizures: No Hx Stroke: No Hx Asthma: No Hx of COPD: No Hx Cardiac Disorders: Yes - Angina Hx Congestive Heart Failure: No Hx Pacemaker: No Hx Hypertension: Yes Hx Thyroid Disease: Yes Hx Diabetes: No Hx Gastroesophageal Reflux: Yes Hx Cancer: No Hx Hepatitis C: No Hx MRSA: No - Vaccination History Hx Tetanus, Diphtheria Vaccination: - unknown Hx Influenza Vaccination: No Hx Pneumococcal Vaccination: No - Social History Hx Tobacco Use: Yes Hx Alcohol Use: Yes Hx Substance Use: No Hx Substance Use Treatment: No Hx Depression: No Hx Physical Abuse: No Hx Emotional Abuse: No - Activities of Daily Living [facility] (if applicable):: [facility] Her[facility] - Female History Patient is a Female of Child Bearing Age (10 -59 yrs old): No Patient : No Family Medical History - Family History Mother Family History: Unknown Living Status: Father Living Status: Physical Exam - Physical Exam General Appearance: Obvious distress, Ill Appearing, Unkempt, Well Developed, Well Nourished Eye Exam: bilateral normal Ears, Nose, Throat: other - Pt with dry MM. No tongue lacerations. No tonsillar swelling. Neck: full range of motion, supple Respiratory: decreased breath sounds, rhonchi - diffusely throughout Cardiovascular/Chest: regular rate, rhythm, no edema, no gallop, no murmur Peripheral Pulses: radial,right: 2+, radial,left: 2+ Gastrointestinal/Abdominal: normal bowel sounds, soft, tenderness - suprapubically Back Exam: no CVA tenderness, no vertebral tenderness Extremity: non-tender, normal capillary refill - pt with contractures in feet/hands., other Neurologic: aphasia, motor weakness, disoriented x 3 Skin Exam: warm/dry, pallor Lymphatic: no adenopathy Progress - Progress Progress: Differential diagnosis: CVA, TIA, dehydration, acute SC among others. 10/07/20 17:45 Patient sent from assisted secondary to weakness and drooling. Concern for possible left facial droop. Patient is talking to his son and is alert and oriented. Lab work and CT are unremarkable as is chest x-ray and EKG. Plan on discharge back to the assisted. I discussed this plan of care with the patient he voices understanding and agreement. Boby Chao M.D. #[id number] - Results/Orders Results/Orders: EKG performed 07 October 2020 at 1553 hrs.: Normal sinus rhythm at 60 bpm, normal axis deviation, low voltage QRS, no ST or T wave changes concerning for ischemia, borderline EKG. No comparison EKG available at this time. EXAM: CT Head Without Intravenous Contrast CLINICAL HISTORY: left facial droop, dysphagia TECHNIQUE: Axial computed tomography images of the head/brain without intravenous contrast. Sagittal and coronal reformatted images were created and reviewed. This CT exam was performed using one or more of the follow ing dose reduction techniques: automated exposure control, adjustment of the mA and/or kV according to patient size, and/or use of iterative reconstruction technique. COMPARISON: No relevant prior studies available. FINDINGS: Limitations: None. Brain: There is age related cortical atrophy and periventricular white matter hypodensity most consistent with chronic small ischemic change. No acute infarct, hemorrhage or mass. Midline shift: None. Ventricles: No abnormality noted. Bones/joints: No acute fracture or osseous destruction. Soft tissues: Visualized portions appear normal. Vasculature: No acute abnormality noted. Sinuses: No layering fluid in the visualized portions of the paranasal sinuses. Mastoid air cells: No mastoid effusion. Orbits: Visualized portions appear normal. IMPRESSION: No acute findings in the head/brain. Electronically signed by: Ilda Lechuga MD 10/07/2020 5:24 PM EXAM: XR Chest, 1 View CLINICAL HISTORY: confusion and left facial droop TECHNIQUE: Frontal view of the chest. COMPARISON: 09/25/2020 FINDINGS: Lungs: No consolidation. Symmetrical vascular pattern. Pleural space: No pneumothorax or pleural effusion. Heart: Normal cardiac size and configuration. Mediastinum: No abnormality noted. Bones/joints: No osseous destruction or sclerosis noted. IMPRESSION: No abnormality noted. Electronically signed by: Ilda Lechuga MD 10/07/2020 5:20 PM 10/07/20 16:33 Sodium Chloride 0.9% (Flush) [Saline Flush Syringe] 10 ml IV PRN PRN 10/07/20 16:34 Pulse Oximetry Assessment DAILY 10/07/20 16:45 CARDIAC ENZYME GROUP Stat COMPLETE METABOLIC PROFILE Stat EKG STAT 10/08/20 09:00 Pulse Ox Daily Laboratory Results - last 24 hr 10/07/20 10/07/20 10/07/20 16:45 16:45 16:45 WBC 5.9 RBC 5.02 Hgb 14.2 Hct 41.8 L MCV 83.2 MCH 28.4 MCHC 34.1 RDW 15.1 H Plt Count 322 MPV 6.8 L Absolute Neuts (auto) 3.00 Absolute Lymphs (auto) 1.80 Absolute Monos (auto) 0.70 Absolute Eos (auto) 0.30 Absolute Basos (auto) 0.10 Neutrophils % 51.1 Lymphocytes % 30.5 Monocytes % 11.6 H Eosinophils % 5.3 H Basophils % 1.5 PT 11.0 H INR 1.11 PTT (SP) 26.2 Sodium 138 Potassium 4.4 Chloride 103 Carbon Dioxide 26 Anion Gap 13.4 BUN 18 Creatinine 0.75 BUN/Creatinine Ratio 24.0 H POC Glucose Random Glucose 96 Serum Osmolality 277.4 Calcium 9.1 Total Bilirubin 0.7 AST 20 ALT 15 Alkaline Phosphatase 70 Creatine Kinase 100 Troponin I < 0.02 Serum Total Protein 7.9 Albumin 4.2 Globulin 3.7 H Albumin/Globulin Ratio 1.1 10/07/20 16:45 WBC RBC Hgb Hct MCV MCH MCHC RDW Plt Count MPV Absolute Neuts (auto) Absolute Lymphs (auto) Absolute Monos (auto) Absolute Eos (auto) Absolute Basos (auto) Neutrophils % Lymphocytes % Monocytes % Eosinophils % Basophils % PT INR PTT (SP) Sodium Potassium Chloride Carbon Dioxide Anion Gap BUN Creatinine BUN/Creatinine Ratio POC Glucose 94 Random Glucose Serum Osmolality Calcium Total Bilirubin AST ALT Alkaline Phosphatase Creatine Kinase Troponin I Serum Total Protein Albumin Globulin Albumin/Globulin Ratio Departure - Departure Clinical Impression: Confusion, Weakness Disposition: Discharge to Asst Living Condition: Fair Departure Forms: ED Discharge - Pt. Copy, Patient Portal Self Enrollment Instructions: Generalized Weakness (DC) Diet: resume usual diet Activity: increase activity as tolerated Referrals: TON YOUNG [Primary Care Provider] - 1-5 Days Home Medications: Ambulatory Orders Albuterol Sulfate Nebs [Proventil Nebs] 2.5 mg NEB Q6HR PRN 12/09/19 Albuterol Sulfate [Ventolin Hfa] 108 mcg INH Q6HR PRN 12/09/19 Ascorbic Acid [Vitamin C] 1,000 mg PO DAILY 12/09/19 Atorvastatin Calcium [Lipitor] 10 mg PO BEDTIME 12/09/19 Carbidopa-Levodopa [Carbidopa/Levodopa 25-100 mg] 2 tab PO 5XD 12/09/19 Cyanocobalamin [Vitamin B12] 1,000 mcg PO DAILY 12/09/19 Escitalopram Oxalate 15 mg PO BEDTIME 12/09/19 Fluticasone Propionate (Nasal) [Fluticasone Propionate] 50 mcg BNAS BID 12/09/19 Gabapentin 600 mg PO TID 12/09/19 Guaifenesin 400 mg PO BID 12/09/19 Hydroxyzine HCl [Hydroxyzine Hydrochloride] 25 mg PO TID 12/09/19 Levothyroxine Sodium [Synthroid] 100 mcg PO 0600 12/09/19 Lisinopril 20 mg PO DAILY 12/09/19 Meloxicam 15 mg PO DAILY 12/09/19 Multiple Vitamin 1 tab PO DAILY 12/09/19 Polyethylene Glycol 3350 1 pow PO DAILY 12/09/19 Tramadol HCl 50 mg PO Q6H PRN 12/09/19 Trazodone HCl [Trazodone Hydrochloride] 25 mg PO BEDTIME 12/09/19 Acetaminophen [Tylenol] 650 mg PO Q6H PRN 02/16/20 Albuterol Inhaler [Ventolin Hfa Inhaler] 2 inh IN PRN 02/16/20 Ciclopirox 1 % EX PRN PRN 02/16/20 Ibuprofen [Ibu] 800 mg PO Q8H PRN 02/16/20 Magnesium Hydroxide [Milk Of Magnesia] 30 ml PO Q12H PRN 02/16/20 Polyvinyl Alcohol [Artificial Tears] 1 drop BOTH_EYES Q6H PRN 02/16/20 Triamcinolone 0.1% Oint [Kenalog 0.1% Ointment] 1 applic TOP PRN 02/16/20 Cyclobenzaprine HCl [Cyclobenzaprine Hydrochlo] 5 mg PO Q8H PRN 05/18/20 Lidocaine 4% Patch 1 ea TOP DAILY 05/18/20 Albuterol Inhaler [Ventolin Hfa Inhaler] 2 puff INH QID #1 inh 05/21/20 Apixaban [Eliquis] 2.5 mg PO BID 30 Days tab 05/21/20 Azithromycin Tab [Zithromax Tab] 250 mg PO QD #4 tab 05/21/20 Bifidobacterium Infantis [Align] 4 mg PO BID #30 capsule 05/21/20 Cefdinir [Omnicef] 300 mg PO BID #22 cap 05/21/20 Dexamethasone Tab [Decadron Tab] 4 mg PO DAILY #7 tab 05/21/20 Guaifenesin [Mucinex] 600 mg PO BID #60 tab 05/21/20
--- NOTE | 2020-10-07 17:22 | RAD ---
EXAM: XR Chest, 1 View CLINICAL HISTORY: confusion and left facial droop TECHNIQUE: Frontal view of the chest. COMPARISON: 09/25/2020 FINDINGS: Lungs: No consolidation. Symmetrical vascular pattern. Pleural space: No pneumothorax or pleural effusion. Heart: Normal cardiac size and configuration. Mediastinum: No abnormality noted. Bones/joints: No osseous destruction or sclerosis noted. IMPRESSION: No abnormality noted. Electronically signed by: Ilda Lechuga MD 10/07/2020 5:20 PM SHEARING SUPERVISOR
--- NOTE | 2020-10-07 17:25 | CT ---
EXAM: CT Head Without Intravenous Contrast CLINICAL HISTORY: left facial droop, dysphagia TECHNIQUE: Axial computed tomography images of the head/brain without intravenous contrast. Sagittal and coronal reformatted images were created and reviewed. This CT exam was performed using one or more of the following dose reduction techniques: automated exposure control, adjustment of the mA and/or kV according to patient size, and/or use of iterative reconstruction technique. COMPARISON: No relevant prior studies available. FINDINGS: Limitations: None. Brain: There is age related cortical atrophy and periventricular white matter hypodensity most consistent with chronic small ischemic change. No acute infarct, hemorrhage or mass. Midline shift: None. Ventricles: No abnormality noted. Bones/joints: No acute fracture or osseous destruction. Soft tissues: Visualized portions appear normal. Vasculature: No acute abnormality noted. Sinuses: No layering fluid in the visualized portions of the paranasal sinuses. Mastoid air cells: No mastoid effusion. Orbits: Visualized portions appear normal. IMPRESSION: No acute findings in the head/brain. Electronically signed by: Ilda Lechuga MD 10/07/2020 5:24 PM [facility]
[2020-10-07 19:10] VITALS: O2SAT 100
[2020-10-07 19:12] VITALS: BP 158/90
== END 2020-10-07 19:13 ==
LOC: ER 15:38
DX: R41.0 Disorientation, unspecified (principal); R53.1 Weakness; I10 Essential (primary) hypertension; E07.9 Disorder of thyroid, unspecified; K21.9 Gastro-esophageal reflux disease without esophagitis; Z20.828 Contact with and (suspected) exposure to other viral communicable diseases; Z87.440 Personal history of urinary (tract) infections; Z87.891 Personal history of nicotine dependence; Z79.899 Other long term (current) drug therapy; Z88.1 Allergy status to other antibiotic agents; Z88.5 Allergy status to narcotic agent